=== PATIENT | male | born 1950 | race Caucasian/White ===

== ENCOUNTER 2017-11-26 06:26 | Day surgery (SDC) | payer OTHER ==
[2017-11-22 14:55] VITALS: BP 135/68
[2017-11-22 15:11] LABS: BASOPHILS % (AUTO) 0.9 % (0.0-5.0); EOSINOPHILS % (AUTO) 1.9 % (0.0-8.0); LYMPHOCYTES % (AUTO) 23.3 % (21.0-51.0); MEAN CORPUSCULAR HEMOGLOBIN 30.8 pg (27.0-33.0); MEAN CORPUSCULAR VOLUME 90.6 fL (79-99); MONOCYTES % (AUTO) 8.5 % (3.0-13.0); NEUTROPHILS % (AUTO) 65.4 % (40.0-77.0); PLATELET COUNT (AUTO) 209 K/uL (130-400); RED BLOOD CELL COUNT(AUTO) 5.19 MIL/uL (4.50-6.20); RED CELL DISTRIBUTION WIDTH 13.7 % (11.0-15.5); WHITE BLOOD COUNT (AUTO) 5.9 K/uL (4.8-10.8)
[2017-11-22 15:19] LABS: CREATININE 1.4 mg/dL (0.5-1.5)
[~2017-11-26] VITALS: Ht 171.4 cm; Wt 76.3 kg
[2017-11-26] VITALS (21 sets, daily range): BP systolic 75–138; BP diastolic 48–77
[2017-11-26] MEDS ORDERED: LIDOCAINE HCL/EPINEPHRINE 50 ML VIAL IJ ONE (07:12)
[2017-11-26] MEDS ORDERED: LACTATED RINGERS 1000ML 1,000 ML IV ONE (07:29)
[2017-11-26] MEDS ORDERED: MIDAZOLAM HCL 1 MG/ML 2ML VIAL ONE (07:32)
[2017-11-26] MEDS ORDERED: FENTANYL CITRATE PF 50 MCG/1 ML 2ML VIAL ONE (07:32)
[2017-11-26] MEDS ORDERED: PROPOFOL 10 MG/ML 20ML VIAL IV ONE (07:32)
[2017-11-26] MEDS ORDERED: ONDANSETRON HCL 4 MG/2 ML VIAL ONE (08:03)
[2017-11-26] MEDS ORDERED: GLYCOPYRROLATE 0.2 MG/ML 5 ML VIAL ONE (09:25)
[2017-11-26] MEDS ORDERED: NEOSTIGMINE METHYLSULFATE 1MG/ML IV ONE (09:25)
[2017-11-26] MEDS ORDERED: NALOXONE HCL 0.4 MG/1 ML ML ONE (09:25)
[2017-11-26] MEDS ORDERED: ROCURONIUM BROMIDE 10MG/1ML 5ML VL ONE (09:25)
[2017-11-26] MEDS ORDERED: LIDOCAINE PF 2% 5ML ABBOJECT ONE (09:25)
== END 2017-11-26 11:00 | disposition home or self-care (01) ==
LOC: DAH 06:26
PROVIDERS: ATTEND Otolaryngology Plastic Surgery within the Head & Neck
DX: L72.0 Epidermal cyst (principal); Z87.891 Personal history of nicotine dependence
CPT/HCPCS: 14040; 36415; 80048; 85025; 88307; A4452; A4606; C1729; J2001; J2250; J2310; J2405; J2704; J2710; J3010; J3490 ×2; J7120